=== PATIENT | male | born 2000 | race Caucasian/White ===

== ENCOUNTER 2025-07-10 13:47 | Emergency (ER) | payer MEDICAID, SELFPAY ==
[2025-07-10 13:48] VITALS: BMI 19.8
[2025-07-10 15:16] VITALS: BP 119/82; PULSE 68; RESP 19; TEMP 36.8; O2SAT 97
--- NOTE | 2025-07-10 15:27 | XR_ITS ---
Examination: Abdomen sonogram, Limited Date and time of exam: July 10, 2025 1544 hours INDICATIONS: Abdominal pain epigastric pain one year Technique: Real-time mondragon scale transabdominal sonographic images of the upper abdomen obtained. Findings: 5 mm gallbladder polyp Negative for cholelithiasis, negative for cholecystitis Normal common bile duct 0.2 cm. Pancreatic head 2.6 cm Liver 13.1 cm smooth contour no focal liver lesions. Normal hepatopedal portal venous flow Patent IVC IMPRESSION: 5 mm gallbladder polyp Negative for cholelithiasis, negative for cholecystitis Normal common bile duct
[2025-07-10 15:47] LABS: Collection Type, Urine Clean Catch; WBC,Urine 0 /hpf (0-5)
[2025-07-10 15:58] LABS: Amorphous Crystals,Urine Present (Absent); Bilirubin,Urine Negative (Negative); Blood,Urine Negative (Negative); Clarity,Urine Turbid (Clear/Hazy); Color,Urine Yellow (Lt Yel-Yel); Glucose, Urine Negative (Negative); Ketones,Urine Trace (Negative); Leukocyte Esterase,Urine Negative (Negative); Nitrite,Urine Negative (Negative); PH,Urine 8.5 (5.0-7.0); Protein,Urine 1+ (Neg - Trace); RBC,Urine 10 /hpf (0-3); Specific Gravity,Urine 1.022 (1.001-1.035); Squamous Epithelial Cell,Urine 1 /hpf (0-5); Urobilinogen,Urine Negative mg/dL (0.0-1.0)
[2025-07-10 16:04] LABS: Amphetamine/Methamp Scrn,U Negative (Negative); Barbiturate Screen,Urine Negative (Negative); Benzodiazepines Screen,Urine Negative (Negative); Benzoylecgonine Screen, Ur Negative (Negative); Fentanyl Screen,Urine Negative (Negative); Opiate Screen,Urine Negative (Negative); THC Screen,Urine Negative (Negative)
[2025-07-10] MEDS: MG HYD/AL HYD/SIME (Maalox Reg) SUSP 30 ML UDC PO (16:29)
[2025-07-10] MEDS: ONDANSETRON ODT 4 MG TABRAP PO (16:29)
[2025-07-10 16:32] LABS: Basophils # (Auto) 0.0 Thou/mm3 (0.0-0.2); Basophils % (Auto) 0 % (0-2.5); Eosinophils # (Auto) 0.0 Thou/mm3 (0.0-0.5); Eosinophils % (Auto) 0 % (0-10); Hematocrit 48.4 % (41.0-53.0); Hemoglobin 16.1 g/dL (13.5-16.0); Immature Granulocytes Auto 0.02 Thou/mm3 (0.00-0.00); Lymphocytes # (Auto) 1.6 Thou/mm3 (1.0-4.8); Lymphocytes % (Auto) 17 % (10-50); Mean Corpuscular HGB Conc 33.3 g/dl (31.0-37.0); Mean Corpuscular Hemoglobin 29.5 pg (25.0-35.0); Mean Corpuscular Volume 89 fL (80-100); Monocytes # (Auto) 0.6 Thou/mm3 (0.0-0.8); Monocytes % (Auto) 6 % (0-12); Neutrophils # (Auto) 7.1 Thou/mm3 (1.8-7.7); Neutrophils % (Auto) 77 % (37-80); Nucleated Red Blood Cell # 0.00 Thou/mm3 (0.00-0.00); Nucleated Red Blood Cell % 0 /100 WBC (0); Platelet Count 265 Thou/mm3 (140-440); RDW Standard Deviation 41.1 fL (35.1-43.9); Red Blood Count 5.46 Miln/mm3 (4.50-5.90); White Blood Count 9.3 Thou/mm3 (3.8-10.6)
[2025-07-10 16:51] LABS: Alanine Aminotransferase 26 U/L (10-49); Albumin, Serum 4.8 gm/dL (3.5-5.0); Albumin/Globulin Ratio 2.2 (1.2-2.2); Alkaline Phosphatase 62 U/L (46-116); Anion Gap 6 (7-16); Aspartate Amino Transferase 19 U/L (0-34); BUN/Creatinine Ratio 9 Ratio (12-20); Bilirubin,Total 0.7 mg/dL (0.3-1.2); Blood Urea Nitrogen 7 mg/dL (9-23); Calcium 10.1 mg/dL (8.3-10.6); Calcium (Corrected) 10.1 mg/dL (8.5-10.1); Carbon Dioxide 28.6 mMol/L (20.0-31.0); Chloride 108 mMol/L (98-107); Creatinine (Component) 0.8 mg/dL (0.6-1.3); Estimated Creatinine Clearance 116.7 mL/min (>60); Globulin 2.2 gm/dL (2.3-3.5); Glucose 103 mg/dL (74-106); Lipase 40 U/L (12-53); Osmolality,Calculated 282 (275-295); Potassium 4.3 mMol/L (3.4-5.1); Sodium 143 mMol/L (136-145); Total Protein 7.0 gm/dL (5.7-8.2); eGFR > 60 See Note
--- NOTE | 2025-07-10 22:30 | EDNOTE_ITS ---
ED General RME/HPI General Chief complaint: Abdominal Pain Stated complaint: ABD FEELS INFLAMATED , NAUSEA Time Seen by Provider: 07/10/25 15:18 Arrival date/time: 07/10/25 13:47 CC: Epigastric pain worse in the mornings, afterwards patient feels like he has to burp but then throws up. Patient was seen here 2 days ago for the same complaint medicines are not working. Denies fever chills chest pain shortness of breath or difficulty breathing. Currently the pain is there on a 1-2 scale. No other complaints Related Data Previous Rx's ?Medication ?Instructions ?Recorded meloxicam 7.5 mg tablet 7.5 mg PO QDAY #10 tabs 12/30 05/21 simethicone 125 mg capsule (Gas-X 125 mg PO QDAY PRN a bdominal 07/10/25 Extra Strength) distention #20 caps Allergies Allergy/AdvReac Type Severity Reaction Status Date / Time No Known Allergies Allergy Verified 07/10/25 13:50 Review of Systems Review of Systems Narrative Review of Systems: GEN: No fever, no chills, no weight loss EYES: No discharge, no visual changes, no pain HEENT: No ear pain, no congestion, no sore throat PULM: No shortness of breath, no cough, no congestion CV: No chest pain, no dyspnea on exertion, no palpitations GI: No nausea, no vomiting, no diarrhea, + pain, no constipation : No frequency, no urgency, no dysuria MUSC/SKEL: No joint pain, no back pain SKIN: No rash PSYCH: No hallucinations, no depression HEME/LYMPH: No easy bleeding or bruising tendencies NEURO: No weakness, no headache Past Medical History Social History SMOKING STATUS: Never smoker ED Exam Narrative Physical exam: [General: Not in any acute distress Head normocephalic HEENT: Within acceptable limits Neck is supple nontender Chest equal chest rise nontender to palpation Respiratory: Clear to auscultation no wheezes crackles or rubs CV: Rate rhythm is regular no murmurs rubs or clicks Abdomen mild epigastric tenderness no reflexive guarding or rebound tenderness. No masses positive bowel sounds all 4 quadrants Back: No CVA tenderness no spinous process tenderness from cervical spine thoracic and lumbar spine Skin: Intact no petechiae rash induration ulceration or crepitus Extremities: Moving all extremity against resistance cap refill less than 2 seconds neurosensory intact Neuro: Awake alert oriented x3 Glascow coma 15 no focal deficits] Course Quality Measures none Orders Category Date Time Status US gall bladder Stat Exams 07/10/25 15:27 Completed CBC Stat Lab 07/10/25 16:18 Completed Comprehensive Metabolic Panel Stat Lab 07/10/25 16:18 Completed Drug Screen,Urine Stat Lab 07/10/25 15:33 Completed Lipase Stat Lab 07/10/25 16:18 Completed Urinalysis Stat Lab 07/10/25 15:33 Completed Ondansetron Odt [Zofran Odt] Med 07/10/25 15:27 Discontinued 4 mg PO X1 ONE mg Hyd/Al Hyd/Conchita Susp [Maalox Susp] Med 07/10/25 15:27 Discontinued 30 ml PO X1 ONE Vital Signs Vital signs: Vital Signs Temperature 98.2 F 07/10/25 15:16 Pulse Rate 68 07/10/25 15:16 Respiratory Rate 19 07/10/25 15:16 Blood Pressure 119/82 07/10/25 15:16 Pulse Oximetry (%) 97 07/10/25 15:16 Oxygen Delivery Method Room Air 07/10/25 15:16 Discharge Plan Plan Patient Disposition: HOME (Self Care) Patient condition on transfer: Stable Prescriptions/Referrals Prescriptions/Med Rec: New simethicone [Gas-X Extra Strength] 125 mg capsule 125 mg PO QDAY PRN (Reason: abdominal distention) Qty: 20 0RF No Action meloxicam 7.5 mg tablet 7.5 mg PO QDAY Qty: 10 0RF Referrals: Teresa Meadows MD [Physician] - In 1 week No Primary/Family,Physician [Primary Care Provider] - In 1 week Problem List Clinical Impression: Abdominal pain, epigastric Patient/Caregiver Discharge Instructions Education Materials: ED Epigastric Pain (Uncertain Cause) Print Language: Maori Stand Alone Forms: Teresa Award Info., Patient Portal Info Letter, Work/School Release PA/[employer]PER[employer] Supervising Physician PA/[employer]OR Supervising Physician: Barrie Sherman ENP [facility] Clinical Information Provided by patient Medical Records Reviewed [facility] Meds/Rx Considered, not Ordered None Labs/Rad/Tests considered, not Ordered None Chronic Illness/Social Conditions which may negatively complicate care or outcome(s)-explain: None or not applicable EKG EKG not done Lab Interpretation Labs: none Lab(s) interpretation(s): CBC shows no acute leukocytosis anemia thrombocytopenia CMP shows a chloride of 108 gap of 6 BUN of 7 no other electrolyte imbalances renal impairment transaminitis or T. bili elevation. Urine is turbid 1+ protein 10+ RBCs crystals no bacteria UDS is negative Imaging Provider imaging interpretation(s): Gallbladder ultrasound shows gallbladder polyp. Medication Administration(s) Medication Administration History Discontinued Medications Al Hydrox/Mg Hydrox/Simethicone (Mg Hyd/Al Hyd/Conchita (Maalox Reg) Susp 30 Ml Udc) 30 ml PO X1 ONE Stop: 07/10/25 15:28 Last Admin: 07/10/25 16:29 Dose: 30 ml Documented By: FORREST Ondansetron HCl (Ondansetron Odt 4 Mg Tabrap) 4 mg PO X1 ONE; Protocol Stop: 07/10/25 15:28 Last Admin: 07/10/25 16:29 Dose: 4 mg Documented By: FORREST Diagnosis Differential diagnosis: Epigastric pain gastritis cholelithiasis cholecystitis Differential dx and/or dx ruled out: This patient was seen by me 2 days ago for the same complaint we will start him on some Gas-X and he follow-up with GI on an outpatient basis
[2025-07-10 22:40] VITALS: BP 124/65; PULSE 67; RESP 18; TEMP 36.7; O2SAT 98
== END 2025-07-10 22:42 | disposition home or self-care (01) ==
PROVIDERS: Registered Nurse General Practice; Emergency Provider Family Medicine
DX: R10.13 Epigastric pain (principal); K82.4 Cholesterolosis of gallbladder
CPT/HCPCS: 36415; 76705; 80053; 80307; 81001; 83690; 85025; 99283; Q0162; A9270